=== PATIENT | female | born 1955 | race Caucasian/White ===

== ENCOUNTER 2019-09-11 16:54 | Emergency (ER) | payer MEDICARE, OTHER ==
[2019-09-11 17:00] VITALS: RESP 18
--- NOTE | 2019-09-11 17:47 | XR ---
EXAMINATION TYPE: XR chest 2V DATE OF EXAM: 09/11/2019 COMPARISON: None HISTORY: Leg swelling TECHNIQUE: 2 view chest FINDINGS: The heart size is normal. The pulmonary vasculature is normal. The lungs are clear. IMPRESSION: 1. Normal 2 view chest
[2019-09-11 17:51] LABS: Basophils # (A) 0.1 k/uL (0-0.2); Basophils % (A) 1 %; Eosinophils # (A) 0.2 k/uL (0-0.7); Eosinophils % (A) 2 %; HCT 40.8 % (34.0-46.0); HGB 13.4 gm/dL (11.4-16.0); Lymphocytes # (A) 3.4 k/uL (1.0-4.8); Lymphocytes % (A) 34 %; MCHC 32.8 g/dL (31.0-37.0); MCV 85.5 fL (80.0-100.0); Mean Platelet Volume 7.4; Monocytes # (A) 0.5 k/uL (0-1.0); Monocytes % (A) 5 %; Neutrophils # (A) 5.8 k/uL (1.3-7.7); Neutrophils % (A) 57 %; Platelet Count 242 k/uL (150-450); RBC 4.77 m/uL (3.80-5.40); RDW 13.6 % (11.5-15.5); WBC 10.1 k/uL (3.8-10.6)
[2019-09-11 17:59] LABS: Albumin 4.4 g/dL (3.5-5.0); Calcium 9.4 mg/dL (8.4-10.2); Potassium 4.6 mmol/L (3.5-5.1); Total Bilirubin 0.5 mg/dL (0.2-1.3); Total Protein 7.4 g/dL (6.3-8.2)
--- NOTE | 2019-09-11 18:28 | ED ---
Extremity Problem HPI - General Chief complaint: Extremity Problem,Nontraumatic Stated complaint: leg swelling/sore Time Seen by Provider: 09/11/19 17:02 Source: patient, family Mode of arrival: ambulatory - History of Present Illness Initial comments: 63-year-old female presenting for bilateral leg swelling she states both her legs appear more swollen than normal. Patient states they're sore. She states she has been walking. 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 She states she was on xarelto, then after seeing a incubator tender she was taken off the xarelto. Then a few months later developed a blood clot while not on any anticoagulatin therapy. Patient then placed on eliquis. patient denies unilateral leg pain, denies falls, trauma, states she has been compliant with the medications. Patient denies chest pain, shortness of breath, pain or SOB when lying flat. Patient denies fevers, denies redness of the legs or calf pain. Upon arrival patient appears well no acute distress. No obvious swelling of the legs, patient is obese. - Related Data Home Medications Medication Instructions Recorded Confirmed Apixaban [Eliquis] 5 mg PO BID 09/11/19 09/11/19 Cholecalciferol [Vitamin D3 (25 5,000 unit PO DAILY 09/11/19 09/11/19 Mcg = 1000 Iu)] Allergies Allergy/AdvReac Type Severity Reaction Status Date / Time nickel AdvReac Rash/Hives Verified 09/11/19 18:22 Review of Systems ROS Statement: Those systems with pertinent positive or pertinent negative responses have been documented in the HPI. ROS Other: All systems not noted in ROS Statement are negative. Past Medical History Additional Past Medical History / Comment(s): DVT right calf History of Any Multi-Drug Resistant Organisms: None Reported Past Surgical History: No Surgical Hx Reported Past Psychological History: No Psychological Hx Reported Past Alcohol Use History: None Reported Past Drug Use History: None Reported General Exam - General Exam Comments Initial Comments: General: The patient is awake and alert, in no distress Eye: +3 mm pupils are equal, round and reactive to light, extra-ocular movements are intact. No nystagmus. There is normal conjunctiva bilaterally. No signs of icterus. Ears, nose, mouth and throat: There are moist mucous membranes and no oral lesions. Neck: The neck is supple, there is no tenderness or JVD. Cardiovascular: There is a regular rate and rhythm. No murmur, rub or gallop is appreciated. Respiratory: Lungs are clear to auscultation, respirations are non-labored, breath sounds are equal. No wheezes, stridor, rales, or rhonchi. Gastrointestinal: Soft, non-distended, non-tender abdomen without masses or organomegaly noted. There is no rebound or guarding present. Musculoskeletal: Normal ROM, no tenderness. Strength 5/5. Sensation intact. Ra dial and DP pulses equal bilaterally 2+. Neurological: A&O x 3. CN II-XII intact grossly, There are no obvious motor or sensory deficits. Coordination appears grossly intact. Speech is normal. Skin: Skin is warm and dry and no rashes or lesions are noted. No calf pain, no LE edema. Psychiatric: Cooperative, appropriate mood & affect, normal judgment. Course Vital Signs 09/11/19 09/11/19 16:56 19:03 Temperature 98.2 F 98 F Pulse Rate 89 77 Respiratory 18 18 Rate Blood Pressure 155/91 150/83 O2 Sat by Pulse 97 97 Oximetry Medical Decision Making - Medical Decision Making 63-year-old female presenting today for chief complaint of bilateral leg swelling. Appreciate swelling or edema on examination however I am not demented patient baseline but no obvious swelling legs appear symmetrical. No pain to palpation of the calfs bilaterally. No masses noted. Patient states she is compliant with her all across denies any history of DVT or PE on eliquis. Denies clotting disorder. Patient Dimer (-). Patient VS WNL. BNP WNL. CXR clear. At this time I feel patient is stable for discharge with outpatient follow-up the patient developed increasing swelling unilateral swellingor scratches to immediately return to the Er otherwise I feel she is stable for outpatient f/u. Discussed case in detail with Dr. Carvalho who is agreeable to care plan and discharge. - Lab Data Result diagrams: 09/11/19 17:38 09/11/19 17:38 Lab Results 09/11/19 09/11/19 09/11/19 Range/Units 17:38 17:38 17:38 WBC 10.1 (3.8-10.6) k/uL RBC 4.77 (3.80-5.40) m/uL Hgb 13.4 (11.4-16.0) gm/dL Hct 40.8 (34.0-46.0) % MCV 85.5 (80.0-100.0) fL MCH 28.0 (25.0-35.0) pg MCHC 32.8 (31.0-37.0) g/dL RDW 13.6 (11.5-15.5) % Plt Count 242 (150-450) k/uL Neutrophils % 57 % Lymphocytes % 34 % Monocytes % 5 % Eosinophils % 2 % Basophils % 1 % Neutrophils # 5.8 (1.3-7.7) k/uL Lymphocytes # 3.4 (1.0-4.8) k/uL Monocytes # 0.5 (0-1.0) k/uL Eosinophils # 0.2 (0-0.7) k/uL Basophils # 0.1 (0-0.2) k/uL D-Dimer 0.34 (<0.60) mg/L FEU Sodium 138 (137-145) mmol/L Potassium 4.6 (3.5-5.1) mmol/L Chloride 107 (98-107) mmol/L Carbon Dioxide 22 (22-30) mmol/L Anion Gap 9 mmol/L BUN 19 H (7-17) mg/dL Creatinine 0.82 (0.52-1.04) mg/dL Est GFR (CKD-EPI)AfAm 87 (>60 ml/min/1.73 sqM) Est GFR (CKD-EPI)NonAf 75 (>60 ml/min/1.73 sqM) Glucose 87 (74-99) mg/dL Calcium 9.4 (8.4-10.2) mg/dL Total Bilirubin 0.5 (0.2-1.3) mg/dL AST 24 (14-36) U/L ALT 13 (4-34) U/L Alkaline Phosphatase 76 (38-126) U/L NT-Pro-B Natriuret Pep pg/mL Total Protein 7.4 (6.3-8.2) g/dL Albumin 4.4 (3.5-5.0) g/dL 09/11/19 Range/Units 17:38 WBC (3.8-10.6) k/uL RBC (3.80-5.40) m/uL Hgb (11.4-16.0) gm/dL Hct (34.0-46.0) % MCV (80.0-100.0) fL MCH (25.0-35.0) pg MCHC (31.0-37.0) g/dL RDW (11.5-15.5) % Plt Count (150-450) k/uL Neutrophils % % Lymphocytes % % Monocytes % % Eosinophils % % Basophils % % Neutrophils # (1.3-7.7) k/uL Lymphocytes # (1.0-4.8) k/uL Monocytes # (0-1.0) k/uL Eosinophils # (0-0.7) k/uL Basophils # (0-0.2) k/uL D-Dimer (<0.60) mg/L FEU Sodium (137-145) mmol/L Potassium (3.5-5.1) mmol/L Chloride (98-107) mmol/L Carbon Dioxide (22-30) mmol/L Anion Gap mmol/L BUN (7-17) mg/dL Creatinine (0.52-1.04) mg/dL Est GFR (CKD-EPI)AfAm (>60 ml/min/1.73 sqM) Est GFR (CKD-EPI)NonAf (>60 ml/min/1.73 sqM) Glucose (74-99) mg/dL Calcium (8.4-10.2) mg/dL Total Bilirubin (0.2-1.3) mg/dL AST (14-36) U/L ALT (4-34) U/L Alkaline Phosphatase (38-126) U/L NT-Pro-B Natriuret Pep 30 pg/mL Total Protein (6.3-8.2) g/dL Albumin (3.5-5.0) g/dL Disposition Clinical Impression: Leg swelling Disposition: HOME SELF-CARE Condition: Good Instructions (If sedation given, give patient instructions): Leg Edema (ED) Additional Instructions: Please use medication as discussed. Please follow-up with family doctor in the next 2 days. Please return to emergency room if the symptoms increase or worsen or for any other concerns. Is patient prescribed a controlled substance at d/c from ED?: No Referrals: Nonstaff,Physician [Primary Care Provider] - 1-2 days Time of Disposition: 18:26
[2019-09-11 19:05] VITALS: BP 150/83; PULSE 77; TEMP 98
== END 2019-09-11 19:03 | disposition home or self-care (01) ==
LOC: EC 16:54
DX: M79.89 Other specified soft tissue disorders (principal); Z86.718 Personal history of other venous thrombosis and embolism; Z86.711 Personal history of pulmonary embolism; Z79.01 Long term (current) use of anticoagulants; Z91.048 Other nonmedicinal substance allergy status
CPT/HCPCS: 36415; 71046; 80053; 83880; 85025; 85379; 99283